=== PATIENT | male | born 1940 | race Caucasian/White ===

== ENCOUNTER → 2016-06-04 | Outpatient (CLI) | payer MEDICARE, OTHER ==
[2016-06-04 14:41] LABS: HEMATOCRIT 36.3 % (37.9-51.0); HGB HCT DIFFERENCE -0.3; MEAN CORPUSCULAR HEMOGLOBIN 28.7 pg (27.0-33.4); MEAN CORPUSCULAR VOLUME 87 fl (80-97); RED BLOOD COUNT 4.18 10^6/uL (4.35-5.55); RED CELL DISTRIBUTION WIDTH 16.7 % (11.5-14.0); WHITE BLOOD COUNT 7.2 10^3/uL (4.0-10.5)
[2016-06-04 14:46] LABS: PROTHROMBIN TIME 20.2 SEC (11.4-15.4)
[2016-06-04 14:59] LABS: ANION GAP 14 (5-19); BLOOD UREA NITROGEN 31 mg/dL (7-20); CALCIUM 9.6 mg/dL (8.4-10.2); CARBON DIOXIDE 31 mmol/L (22-30); CHLORIDE 98 mmol/L (98-107); CREATININE RESULT 1.57 mg/dL (0.52-1.25); GLUCOSE 99 mg/dL (75-110); POTASSIUM 4.3 mmol/L (3.6-5.0); SODIUM 142.6 mmol/L (137-145)
== END ==
LOC: OD 14:05
PROVIDERS: ATTEND Internal Medicine Advanced Heart Failure and Transplant Cardiology
DX: I50.9 Heart failure, unspecified (principal); E11.8 Type 2 diabetes mellitus with unspecified complications; Z95.811 Presence of heart assist device
CPT/HCPCS: 36415; 80048; 85027; 85610

== ENCOUNTER → 2016-06-11 | Outpatient (CLI) | payer MEDICARE, OTHER ==
[2016-06-11 12:52] LABS: PROTHROMBIN TIME 22.9 SEC (11.4-15.4)
[2016-06-11 13:01] LABS: ANION GAP 15 (5-19); BLOOD UREA NITROGEN 32 mg/dL (7-20); CALCIUM 9.7 mg/dL (8.4-10.2); CARBON DIOXIDE 29 mmol/L (22-30); CHLORIDE 98 mmol/L (98-107); CREATININE RESULT 1.68 mg/dL (0.52-1.25); GLUCOSE 118 mg/dL (75-110); POTASSIUM 4.5 mmol/L (3.6-5.0); SODIUM 142.4 mmol/L (137-145)
== END ==
LOC: OD 12:02
PROVIDERS: ATTEND Internal Medicine Advanced Heart Failure and Transplant Cardiology
DX: I50.9 Heart failure, unspecified (principal); E11.8 Type 2 diabetes mellitus with unspecified complications; Z95.811 Presence of heart assist device
CPT/HCPCS: 36415; 80048; 85610

== ENCOUNTER → 2016-06-25 | Outpatient (CLI) | payer MEDICARE, OTHER ==
[2016-06-25 12:43] LABS: PROTHROMBIN TIME 21.4 SEC (11.4-15.4)
[2016-06-25 12:52] LABS: ANION GAP 12 (5-19); BLOOD UREA NITROGEN 39 mg/dL (7-20); CALCIUM 9.5 mg/dL (8.4-10.2); CARBON DIOXIDE 32 mmol/L (22-30); CHLORIDE 97 mmol/L (98-107); CREATININE RESULT 1.88 mg/dL (0.52-1.25); GLUCOSE 132 mg/dL (75-110); POTASSIUM 4.7 mmol/L (3.6-5.0); SODIUM 140.5 mmol/L (137-145)
== END ==
LOC: OD 11:24
PROVIDERS: ATTEND Internal Medicine Advanced Heart Failure and Transplant Cardiology
DX: I50.9 Heart failure, unspecified (principal); Z95.811 Presence of heart assist device; E11.8 Type 2 diabetes mellitus with unspecified complications
CPT/HCPCS: 36415; 80048; 85610

== ENCOUNTER → 2016-07-07 | Outpatient (CLI) | payer MEDICARE, OTHER ==
[2016-07-07 11:03] LABS: PROTHROMBIN TIME 19.2 SEC (11.4-15.4)
== END ==
LOC: OD 10:09
PROVIDERS: ATTEND Internal Medicine Advanced Heart Failure and Transplant Cardiology
DX: I50.9 Heart failure, unspecified (principal); E11.8 Type 2 diabetes mellitus with unspecified complications; Z95.811 Presence of heart assist device
CPT/HCPCS: 36415; 85610

== ENCOUNTER → 2016-08-04 | Outpatient (CLI) | payer MEDICARE, OTHER ==
[2016-08-04 14:20] LABS: PROTHROMBIN TIME 18.8 SEC (11.4-15.4)
[2016-08-04 14:47] LABS: ANION GAP 17 (5-19); BLOOD UREA NITROGEN 36 mg/dL (7-20); CALCIUM 9.7 mg/dL (8.4-10.2); CARBON DIOXIDE 28 mmol/L (22-30); CHLORIDE 99 mmol/L (98-107); CREATININE RESULT 1.67 mg/dL (0.52-1.25); GLUCOSE 103 mg/dL (75-110); POTASSIUM 4.6 mmol/L (3.6-5.0)
== END ==
LOC: OD 13:28
PROVIDERS: ATTEND Internal Medicine Advanced Heart Failure and Transplant Cardiology
DX: I50.9 Heart failure, unspecified (principal); E11.8 Type 2 diabetes mellitus with unspecified complications; Z95.811 Presence of heart assist device
CPT/HCPCS: 36415; 80048; 85610

== ENCOUNTER → 2016-08-11 | Outpatient (CLI) | payer MEDICARE, OTHER ==
[2016-08-11 13:09] LABS: PROTHROMBIN TIME 14.7 SEC (11.4-15.4)
[2016-08-11 13:15] LABS: ANION GAP 16 (5-19); BLOOD UREA NITROGEN 39 mg/dL (7-20); CALCIUM 9.6 mg/dL (8.4-10.2); CARBON DIOXIDE 27 mmol/L (22-30); CHLORIDE 100 mmol/L (98-107); CREATININE RESULT 1.72 mg/dL (0.52-1.25); GLUCOSE 109 mg/dL (75-110); POTASSIUM 4.4 mmol/L (3.6-5.0); SODIUM 143.1 mmol/L (137-145)
== END ==
LOC: OD 12:32
PROVIDERS: ATTEND Internal Medicine Advanced Heart Failure and Transplant Cardiology
DX: I50.9 Heart failure, unspecified (principal); E11.8 Type 2 diabetes mellitus with unspecified complications; Z95.811 Presence of heart assist device
CPT/HCPCS: 36415; 80048; 85610

== ENCOUNTER → 2016-08-18 | Outpatient (CLI) | payer MEDICARE, OTHER ==
[2016-08-18 14:06] LABS: PROTHROMBIN TIME 26.1 SEC (11.4-15.4)
== END ==
LOC: OD 12:58
PROVIDERS: ATTEND Internal Medicine Advanced Heart Failure and Transplant Cardiology
DX: I50.9 Heart failure, unspecified (principal); Z95.811 Presence of heart assist device; E11.8 Type 2 diabetes mellitus with unspecified complications
CPT/HCPCS: 36415; 85610

== ENCOUNTER 2016-08-23 09:15 | Emergency (ER) | payer MEDICARE, OTHER ==
[2016-08-23] MEDS ORDERED: LIDOCAINE 1%/EPINEPHRINE INJ 20 ML VIAL INJ ONE (09:23)
--- NOTE | 2016-08-23 09:29 | ER Document Report ---
ED General - General Mode of Arrival: Medic Information source: Patient TRAVEL OUTSIDE OF THE [place] IN LAST 30 DAYS: No - HPI Patient complains to provider of: lip laceration Onset: Other - 00:00 last night Associated symptoms: Other - see notes above <RICHAR CRANDALL - Last Filed: 08/23/16 10:29> <MARÍA HOUSTON - Last Filed: 08/23/16 11:32> - General Chief Complaint: Laceration Stated Complaint: LIP LACERATION Notes: 76 year old male on LVAD (2015) and using Coumadin presents to the ED via EMS complaining of a lip laceration to the upper lip that started last night at 00:00 after he fell secondary to weakness. Patient reports the weakness occurs occasionally and is not new. EMS reports that the patient fell asleep on his recliner after he got the bleeding to stop and woke up covered in blood. (RICHAR CRANDALL) The patient states standing up feeling weak and falling if not a new problem that he has done this several times and there was nothing different about last night's episode. (MARÍA HOUSTON) - Related Data Allergies/Adverse Reactions: codeine Allergy (Verified 08/23/16 09:24) Sulfa (Sulfonamide Antibiotics) Allergy (Verified 08/23/16 09:24) Home Medications: Current Home Medications Warfarin Sodium [Coumadin] 7 mg PO DAILY 08/23/16 [History] Past Medical History - General Information source: Patient - Social History Smoking Status: Unknown if Ever Smoked Family History: Reviewed & Not Pertinent - Past Medical History Cardiac Medical History: Reports: Hx Congestive Heart Failure - LVAD in place <RICHAR CRANDALL - Last Filed: 08/23/16 10:29> Review of Systems - Review of Systems Constitutional: See HPI, Weakness EENT: No symptoms reported Cardiovascular: No symptoms reported Respiratory: No symptoms reported Gastrointestinal: No symptoms reported Genitourinary: No symptoms reported Male Genitourinary: No symptoms reported Musculoskeletal: No symptoms reported Skin: See HPI, Other - laceration to the upper lip Hematologic/Lymphatic: No symptoms reported Neurological/Psychological: No symptoms reported -: Yes All other systems reviewed and negative <RICHAR CRANDALL - Last Filed: 08/23/16 10:29> Physical Exam - General General appearance: Alert In distress: None - HEENT Head: Normocephalic, Atraumatic Eyes: Normal Extraocular movements intact: Yes Pupils: PERRL - Respiratory Respiratory status: No respiratory distress - Cardiovascular Rhythm: Regular - Abdominal Inspection: Normal - Back Back: Normal - Extremities General upper extremity: Normal inspection, Normal ROM General lower extremity: Normal inspection, Normal ROM - Neurological Neuro grossly intact: Yes - Psychological Associated symptoms: Normal affect, Normal mood - Skin Skin Temperature: Warm Skin Moisture: Dry Skin Color: Normal <RICHAR CRANDALL - Last Filed: 08/23/16 10:29> - HEENT Head: Open wounds - There is a vertical laceration through the medial left upper lip about 1 cm in length. 4 mm extends above the vermilion border 6 mm below the vermilion border. The lip is swollen and bruised, there are minor mucosal lacerations on the underneath side that do not need treatment. It is actively bleeding. Bleeding can be controlled with compression. Mouth/Lips: Other - There is a rather large chip out of the lateral corner of the upper central incisor which the patient states is an old problem. Patient denies any other loose teeth other than his partial plate in the lower anterior area. <MARÍA HOUSTON - Last Filed: 08/23/16 11:32> - Vital signs Vitals: Pulse Resp BP Pulse Ox 82 18 99/53 L 90 L 08/23/16 09:28 08/23/16 09:28 08/23/16 09:28 08/23/16 09:28 Course - Laboratory Result Diagrams: 08/23/16 09:30 08/23/16 09:30 <RICHAR CRANDALL - Last Filed: 08/23/16 10:29> - Laboratory Result Diagrams: 08/23/16 09:30 08/23/16 09:30 - Diagnostic Test Radiology reviewed: Image reviewed, Reports reviewed - Head CT does not show any intracranial bleeding or injury. <MARÍA HOUSTON - Last Filed: 08/23/16 11:32> - Re-evaluation Re-evalutation: 08/23/16 11:00 The patient's INR was 3.05, he states this usually closer to one but they increase his Coumadin recently. He reports last week it was in the 2 point something range but he doesn't remember what. It sounds like they want him about 2.5 by what he recalls. (MARÍA HOUSTON) - Vital Signs Vital signs: Temp Pulse Resp BP Pulse Ox 82 18 99/53 L 90 L 08/23/16 09:28 08/23/16 09:28 08/23/16 09:28 08/23/16 09:28 - Laboratory Laboratory results interpreted by me: 08/23/16 08/23/16 08/23/16 09:30 09:30 09:30 WBC 11.2 H RBC 3.58 L Hgb 10.8 L Hct 31.6 L RDW 14.2 H Plt Count 134 L Lymphocytes % 11.9 L Absolute Neutrophils 8.6 H PT 33.0 H BUN 52 H Creatinine 1.86 H Est GFR ( Amer) 43 L Est GFR (Non-Af Amer) 36 L Glucose 116 H Procedures <RICHAR CRANDALL - Last Filed: 08/23/16 10:29> - Laceration/Wound Repair Left Face Time completed: 10:10 Wound length (cm): 1 Wound's Depth, Shape: Into muscle, Linear, Contused tissue Laceration pre-procedure: Sterile drapes applied, Shur-Clens applied Anesthetic type: 1% Lidocaine w/epi Volume Anesthetic (mLs): 1 Wound explored: Clean Irrigated w/ Saline (mLs): 10 Wound Debrided: Minimal Wound Repaired With: Sutures Suture Size/Type: 5:0, Vicryl Number of Sutures: 4 Layer Closure?: No Post-procedure NV exam normal: Yes Complications: No <MARÍA HOUSTON - Last Filed: 08/23/16 11:32> - Laceration/Wound Repair Left Face Notes: 08/23/16 10:16 Bleeding stopped after the sutures were placed. This is probably due to a combination of the lidocaine with epinephrine, and approximating the wound edges. (MARÍA HOUSTON) Discharge <RICHAR CRANDALL - Last Filed: 08/23/16 10:29> <MARÍA HOUSTON - Last Filed: 08/23/16 11:32> - Discharge Clinical Impression: Syncope and collapse, Excessive anticoagulation Lip laceration Qualifiers: Encounter type: initial encounter Qualified Code(s): S01.511A - Laceration without foreign body of lip, initial encounter Condition: Stable Disposition: HOME, SELF-CARE Additional Instructions: Use ice packs on the lip today to reduce swelling. Do not take your Coumadin dose today. Call your doctor to report the INR of 3.05 Return next Thursday to have the sutures removed. RETURN TO THE EMERGENCY ROOM IF ANY NEW OR WORSENING SYMPTOMS. Scribe Attestation: 08/23/16 11:32 I personally performed the services described in the documentation, reviewed and edited the documentation which was dictated to the scribe in my presence, and it accurately records my words and actions. (MARÍA HOUSTON) Scribe Documentation - Scribe Written by Trudi:: Trudi Funk, 08/23/2016 0930 acting as scribe for :: Jerel <RICHAR CRANDALL - Last Filed: 08/23/16 10:29>
[2016-08-23 09:47] LABS: ABSOLUTE BASOPHILS # (AUTO) 0.1 10^3/uL (0.0-0.2); ABSOLUTE EOSINOPHILS # (AUTO) 0.2 10^3/uL (0.0-0.6); ABSOLUTE LYMPHOCYTES (AUTO) 1.3 10^3/uL (0.5-4.7); ABSOLUTE NEUT (AUTO) 8.6 10^3/uL (1.7-8.2); BASOPHILS % (AUTO) 0.7 % (0-2); EOSINOPHILS % (AUTO) 1.4 % (0-6); HEMATOCRIT 31.6 % (37.9-51.0); HEMOGLOBIN 10.8 g/dL (13.5-17.0); HGB HCT DIFFERENCE 0.8; LYMPHOCYTES % (AUTO) 11.9 % (13-45); MEAN CORPUSCULAR HEMOGLOBIN 30.1 pg (27.0-33.4); MEAN CORPUSCULAR HGB CONC 34.1 g/dL (32.0-36.0); MEAN CORPUSCULAR VOLUME 88 fl (80-97); MONOCYTES % (AUTO) 9.3 % (3-13); RED BLOOD COUNT 3.58 10^6/uL (4.35-5.55); RED CELL DISTRIBUTION WIDTH 14.2 % (11.5-14.0); SEGMENTED NEUTROPHILS % (AUTO) 76.7 % (42-78); WHITE BLOOD COUNT 11.2 10^3/uL (4.0-10.5)
[2016-08-23 10:07] LABS: ALANINE AMINOTRANSFERASE 26 U/L (21-72); ALBUMIN 3.7 g/dL (3.5-5.0); ALKALINE PHOSPHATASE 73 U/L (38-126); ANION GAP 11 (5-19); ASPARTATE AMINO TRANSFERASE 22 U/L (17-59); BILIRUBIN,DIRECT 0.4 mg/dL (0.0-0.4); BILIRUBIN,TOTAL 0.8 mg/dL (0.2-1.3); BLOOD UREA NITROGEN 52 mg/dL (7-20); CALCIUM 8.8 mg/dL (8.4-10.2); CARBON DIOXIDE 28 mmol/L (22-30); CHLORIDE 101 mmol/L (98-107); CREATININE RESULT 1.86 mg/dL (0.52-1.25); GLUCOSE 116 mg/dL (75-110); POTASSIUM 4.3 mmol/L (3.6-5.0); SODIUM 140.1 mmol/L (137-145); TOTAL PROTEIN 6.7 g/dL (6.3-8.2)
[2016-08-23 11:44] VITALS: BP 98/50
== END 2016-08-23 11:43 | disposition home or self-care (01) ==
LOC: ER 09:15
PROC: 0HQ1XZZ Repair Face Skin, External Approach (ICD-10-PCS; principal; 2016-08-23)
DX: S01.511A Laceration without foreign body of lip, initial encounter (principal); R55 Syncope and collapse; R53.1 Weakness; Z79.01 Long term (current) use of anticoagulants; W19.XXXA Unspecified fall, initial encounter
CPT/HCPCS: 99284; 36415; 85025; 85610; 80053; 70450; 12011; J3490

== ENCOUNTER → 2016-10-01 | Outpatient (CLI) | payer MEDICARE, OTHER ==
[2016-10-01 13:46] LABS: ANION GAP 11 (5-19); BLOOD UREA NITROGEN 29 mg/dL (7-20); CALCIUM 9.3 mg/dL (8.4-10.2); CARBON DIOXIDE 30 mmol/L (22-30); CHLORIDE 101 mmol/L (98-107); CREATININE RESULT 1.45 mg/dL (0.52-1.25); GLUCOSE 97 mg/dL (75-110); SODIUM 142.4 mmol/L (137-145)
== END ==
LOC: OD 12:46
PROVIDERS: ATTEND Internal Medicine Advanced Heart Failure and Transplant Cardiology
DX: I50.9 Heart failure, unspecified (principal); E11.8 Type 2 diabetes mellitus with unspecified complications; Z95.811 Presence of heart assist device
CPT/HCPCS: 36415; 80048; 85610

== ENCOUNTER → 2016-10-16 | Outpatient (CLI) | payer MEDICARE, OTHER ==
[2016-10-16 13:01] LABS: HEMATOCRIT 32.8 % (37.9-51.0); HEMOGLOBIN 10.5 g/dL (13.5-17.0); HGB HCT DIFFERENCE -1.3; MEAN CORPUSCULAR HEMOGLOBIN 27.2 pg (27.0-33.4); MEAN CORPUSCULAR HGB CONC 32.1 g/dL (32.0-36.0); MEAN CORPUSCULAR VOLUME 85 fl (80-97); RED BLOOD COUNT 3.88 10^6/uL (4.35-5.55); RED CELL DISTRIBUTION WIDTH 14.3 % (11.5-14.0); WHITE BLOOD COUNT 5.2 10^3/uL (4.0-10.5)
[2016-10-16 13:08] LABS: PROTHROMBIN TIME 28.5 SEC (11.4-15.4)
[2016-10-16 13:17] LABS: ANION GAP 14 (5-19); BLOOD UREA NITROGEN 27 mg/dL (7-20); CALCIUM 9.2 mg/dL (8.4-10.2); CARBON DIOXIDE 29 mmol/L (22-30); CHLORIDE 100 mmol/L (98-107); CREATININE RESULT 1.57 mg/dL (0.52-1.25); GLUCOSE 108 mg/dL (75-110); POTASSIUM 3.7 mmol/L (3.6-5.0); SODIUM 143.3 mmol/L (137-145)
== END ==
LOC: OD 11:59
PROVIDERS: ATTEND Internal Medicine Advanced Heart Failure and Transplant Cardiology
DX: I50.9 Heart failure, unspecified (principal); Z95.811 Presence of heart assist device; E11.8 Type 2 diabetes mellitus with unspecified complications
CPT/HCPCS: 36415; 80048; 85027; 85610

== ENCOUNTER → 2016-11-05 | Outpatient (CLI) | payer MEDICARE, OTHER ==
[2016-11-05 10:04] LABS: PROTHROMBIN TIME 29.8 SEC (11.4-15.4)
[2016-11-05 10:15] LABS: ANION GAP 12 (5-19); BLOOD UREA NITROGEN 27 mg/dL (7-20); CALCIUM 9.1 mg/dL (8.4-10.2); CARBON DIOXIDE 30 mmol/L (22-30); CHLORIDE 101 mmol/L (98-107); CREATININE RESULT 1.51 mg/dL (0.52-1.25); GLUCOSE 126 mg/dL (75-110); POTASSIUM 3.8 mmol/L (3.6-5.0); SODIUM 142.8 mmol/L (137-145)
== END ==
LOC: OD 09:14
PROVIDERS: ATTEND Internal Medicine Advanced Heart Failure and Transplant Cardiology
DX: I50.9 Heart failure, unspecified (principal); E11.8 Type 2 diabetes mellitus with unspecified complications; Z95.811 Presence of heart assist device
CPT/HCPCS: 36415; 80048; 85610

== ENCOUNTER → 2016-11-18 | Outpatient (CLI) | payer MEDICARE, OTHER ==
[2016-11-18 14:31] LABS: PROTHROMBIN TIME 31.4 SEC (11.4-15.4)
[2016-11-18 14:54] LABS: ANION GAP 12 (5-19); BLOOD UREA NITROGEN 29 mg/dL (7-20); CARBON DIOXIDE 33 mmol/L (22-30); CHLORIDE 98 mmol/L (98-107); CREATININE RESULT 1.35 mg/dL (0.52-1.25); GLUCOSE 88 mg/dL (75-110); POTASSIUM 3.3 mmol/L (3.6-5.0); SODIUM 143.3 mmol/L (137-145)
== END ==
LOC: OD 13:34
PROVIDERS: ATTEND Internal Medicine Advanced Heart Failure and Transplant Cardiology
DX: I50.9 Heart failure, unspecified (principal); Z95.811 Presence of heart assist device; E11.8 Type 2 diabetes mellitus with unspecified complications
CPT/HCPCS: 36415; 80048; 85610

== ENCOUNTER → 2016-12-02 | Outpatient (CLI) | payer MEDICARE, OTHER ==
[2016-12-02 14:09] LABS: PROTHROMBIN TIME 27.3 SEC (11.4-15.4)
[2016-12-02 14:22] LABS: ANION GAP 12 (5-19); BLOOD UREA NITROGEN 30 mg/dL (7-20); CALCIUM 9.2 mg/dL (8.4-10.2); CARBON DIOXIDE 35 mmol/L (22-30); CHLORIDE 97 mmol/L (98-107); GLUCOSE 93 mg/dL (75-110); POTASSIUM 3.5 mmol/L (3.6-5.0); SODIUM 143.6 mmol/L (137-145)
== END ==
LOC: OD 13:33
PROVIDERS: ATTEND Internal Medicine Advanced Heart Failure and Transplant Cardiology
DX: I50.9 Heart failure, unspecified (principal); E11.8 Type 2 diabetes mellitus with unspecified complications; Z95.811 Presence of heart assist device
CPT/HCPCS: 36415; 80048; 85610

== ENCOUNTER → 2017-01-06 | Outpatient (CLI) | payer MEDICARE, OTHER ==
[2017-01-06 12:20] LABS: PROTHROMBIN TIME 22.4 SEC (11.4-15.4)
[2017-01-06 12:40] LABS: ANION GAP 14 (5-19); BLOOD UREA NITROGEN 35 mg/dL (7-20); CALCIUM 9.6 mg/dL (8.4-10.2); CARBON DIOXIDE 28 mmol/L (22-30); CHLORIDE 100 mmol/L (98-107); CREATININE RESULT 1.54 mg/dL (0.52-1.25); GLUCOSE 117 mg/dL (75-110); POTASSIUM 4.3 mmol/L (3.6-5.0); SODIUM 141.8 mmol/L (137-145)
== END ==
LOC: OD 11:43
PROVIDERS: ATTEND Internal Medicine Advanced Heart Failure and Transplant Cardiology
DX: I50.9 Heart failure, unspecified (principal); E11.8 Type 2 diabetes mellitus with unspecified complications; Z95.811 Presence of heart assist device
CPT/HCPCS: 36415; 80048; 85610

== ENCOUNTER → 2017-02-09 | Outpatient (CLI) | payer MEDICARE, OTHER ==
[2017-02-09 12:45] LABS: PROTHROMBIN TIME 26.5 SEC (11.4-15.4)
== END ==
LOC: OD 11:44
PROVIDERS: ATTEND Internal Medicine Advanced Heart Failure and Transplant Cardiology
DX: I50.9 Heart failure, unspecified (principal); Z95.811 Presence of heart assist device; E11.8 Type 2 diabetes mellitus with unspecified complications
CPT/HCPCS: 36415; 85610

== ENCOUNTER → 2017-02-19 | Outpatient (CLI) | payer MEDICARE, OTHER ==
[2017-02-19 13:53] LABS: PROTHROMBIN TIME 22.9 SEC (11.4-15.4)
== END ==
LOC: OD 13:19
PROVIDERS: ATTEND Internal Medicine Advanced Heart Failure and Transplant Cardiology
DX: I50.9 Heart failure, unspecified (principal); Z95.811 Presence of heart assist device; E11.9 Type 2 diabetes mellitus without complications
CPT/HCPCS: 36415; 85610

== ENCOUNTER → 2017-03-25 | Outpatient (CLI) | payer MEDICARE, OTHER ==
[2017-03-25 12:16] LABS: PROTHROMBIN TIME 27.5 SEC (11.4-15.4)
[2017-03-25 12:41] LABS: ANION GAP 12 (5-19); BLOOD UREA NITROGEN 36 mg/dL (7-20); CALCIUM 9.2 mg/dL (8.4-10.2); CARBON DIOXIDE 33 mmol/L (22-30); CHLORIDE 102 mmol/L (98-107); CREATININE RESULT 1.65 mg/dL (0.52-1.25); GLUCOSE 86 mg/dL (75-110); POTASSIUM 3.8 mmol/L (3.6-5.0); SODIUM 147.3 mmol/L (137-145)
== END ==
LOC: OD 11:44
PROVIDERS: ATTEND Internal Medicine Advanced Heart Failure and Transplant Cardiology
DX: I50.9 Heart failure, unspecified (principal); Z95.811 Presence of heart assist device; E11.8 Type 2 diabetes mellitus with unspecified complications
CPT/HCPCS: 36415; 80048; 85610

== ENCOUNTER → 2017-04-08 | Outpatient (CLI) | payer MEDICARE, OTHER ==
[2017-04-08 11:58] LABS: ANION GAP 12 (5-19); BLOOD UREA NITROGEN 29 mg/dL (7-20); CALCIUM 9.6 mg/dL (8.4-10.2); CARBON DIOXIDE 35 mmol/L (22-30); CHLORIDE 100 mmol/L (98-107); GLUCOSE 91 mg/dL (75-110); POTASSIUM 3.9 mmol/L (3.6-5.0); SODIUM 146.7 mmol/L (137-145)
== END ==
LOC: OD 10:59
PROVIDERS: ATTEND Internal Medicine Advanced Heart Failure and Transplant Cardiology
DX: I50.9 Heart failure, unspecified (principal); E11.8 Type 2 diabetes mellitus with unspecified complications
CPT/HCPCS: 36415; 80048; 85610

== ENCOUNTER → 2017-05-19 | Outpatient (CLI) | payer MEDICARE, OTHER ==
[2017-05-19 13:40] LABS: INTERNATIONAL RATION (INR) 2.53; PROTHROMBIN TIME 28.5 SEC (11.4-15.4)
[2017-05-19 13:55] LABS: ANION GAP 15 (5-19); BLOOD UREA NITROGEN 32 mg/dL (7-20); CALCIUM 9.8 mg/dL (8.4-10.2); CARBON DIOXIDE 31 mmol/L (22-30); CHLORIDE 98 mmol/L (98-107); GLUCOSE 90 mg/dL (75-110); POTASSIUM 3.5 mmol/L (3.6-5.0); SODIUM 143.7 mmol/L (137-145)
== END ==
LOC: OD 12:57
PROVIDERS: ATTEND Internal Medicine Advanced Heart Failure and Transplant Cardiology
DX: I50.9 Heart failure, unspecified (principal); E11.8 Type 2 diabetes mellitus with unspecified complications; Z95.811 Presence of heart assist device
CPT/HCPCS: 36415; 80048; 85610

== ENCOUNTER → 2017-06-09 | Outpatient (CLI) | payer MEDICARE, OTHER ==
[2017-06-09 14:14] LABS: INTERNATIONAL RATION (INR) 2.35
[2017-06-09 14:26] LABS: ANION GAP 10 (5-19); BLOOD UREA NITROGEN 32 mg/dL (7-20); CALCIUM 9.9 mg/dL (8.4-10.2); CARBON DIOXIDE 34 mmol/L (22-30); CHLORIDE 98 mmol/L (98-107); GLUCOSE 98 mg/dL (75-110); POTASSIUM 3.9 mmol/L (3.6-5.0); SODIUM 142.1 mmol/L (137-145)
== END ==
LOC: OD 12:49
PROVIDERS: ATTEND Internal Medicine Advanced Heart Failure and Transplant Cardiology
DX: I50.9 Heart failure, unspecified (principal); Z95.811 Presence of heart assist device; E11.8 Type 2 diabetes mellitus with unspecified complications
CPT/HCPCS: 36415; 80048; 85610

== ENCOUNTER → 2017-06-23 | Outpatient (CLI) | payer MEDICARE, OTHER ==
[2017-06-23 14:10] LABS: INTERNATIONAL RATION (INR) 2.77; PROTHROMBIN TIME 30.6 SEC (11.4-15.4)
[2017-06-23 14:16] LABS: BLOOD UREA NITROGEN 37 mg/dL (7-20); CALCIUM 10.1 mg/dL (8.4-10.2); CHLORIDE 92 mmol/L (98-107); GLUCOSE 95 mg/dL (75-110); POTASSIUM 3.1 mmol/L (3.6-5.0)
[2017-06-23 14:33] LABS: ANION GAP 10 (5-19); CARBON DIOXIDE 43 mmol/L (22-30)
== END ==
LOC: OD 12:50
PROVIDERS: ATTEND Internal Medicine Advanced Heart Failure and Transplant Cardiology
DX: I50.9 Heart failure, unspecified (principal); E11.8 Type 2 diabetes mellitus with unspecified complications; Z95.811 Presence of heart assist device
CPT/HCPCS: 36415; 80048; 85610

== ENCOUNTER → 2017-06-26 | Outpatient (CLI) | payer MEDICARE, OTHER ==
[2017-06-26 12:54] LABS: ANION GAP 13 (5-19); BLOOD UREA NITROGEN 32 mg/dL (7-20); CALCIUM 9.6 mg/dL (8.4-10.2); CARBON DIOXIDE 36 mmol/L (22-30); CHLORIDE 95 mmol/L (98-107); GLUCOSE 102 mg/dL (75-110); POTASSIUM 3.1 mmol/L (3.6-5.0); SODIUM 143.7 mmol/L (137-145)
== END ==
LOC: OD 12:01
PROVIDERS: ATTEND Internal Medicine Advanced Heart Failure and Transplant Cardiology
DX: I50.9 Heart failure, unspecified (principal); E11.8 Type 2 diabetes mellitus with unspecified complications; Z95.811 Presence of heart assist device
CPT/HCPCS: 36415; 80048

== ENCOUNTER → 2017-08-26 | Outpatient (CLI) | payer MEDICARE, OTHER ==
[2017-08-26 14:20] LABS: ANION GAP 11 (5-19); BLOOD UREA NITROGEN 34 mg/dL (7-20); CALCIUM 9.5 mg/dL (8.4-10.2); CARBON DIOXIDE 37 mmol/L (22-30); CHLORIDE 98 mmol/L (98-107); GLUCOSE 86 mg/dL (75-110); POTASSIUM 3.3 mmol/L (3.6-5.0); SODIUM 145.5 mmol/L (137-145)
[2017-08-26 19:45] LABS: INTERNATIONAL RATION (INR) 5.43; PROTHROMBIN TIME 51.9 SEC (11.4-15.4)
== END ==
LOC: OD 13:20
PROVIDERS: ATTEND Internal Medicine Advanced Heart Failure and Transplant Cardiology
DX: I50.9 Heart failure, unspecified (principal); E11.8 Type 2 diabetes mellitus with unspecified complications; Z95.811 Presence of heart assist device
CPT/HCPCS: 36415; 80048; 85610

== ENCOUNTER → 2017-09-23 | Outpatient (CLI) | payer MEDICARE, OTHER ==
[2017-09-23 13:18] LABS: INTERNATIONAL RATION (INR) 3.27; PROTHROMBIN TIME 34.8 SEC (11.4-15.4)
[2017-09-23 13:36] LABS: ANION GAP 15 (5-19); BLOOD UREA NITROGEN 26 mg/dL (7-20); CALCIUM 9.3 mg/dL (8.4-10.2); CARBON DIOXIDE 36 mmol/L (22-30); CHLORIDE 97 mmol/L (98-107); GLUCOSE 132 mg/dL (75-110); SODIUM 148.1 mmol/L (137-145)
== END ==
LOC: OD 12:31
PROVIDERS: ATTEND Internal Medicine Advanced Heart Failure and Transplant Cardiology
DX: I50.9 Heart failure, unspecified (principal); E11.8 Type 2 diabetes mellitus with unspecified complications; Z95.811 Presence of heart assist device
CPT/HCPCS: 36415; 80048; 85610

== ENCOUNTER → 2017-09-30 | Outpatient (CLI) | payer MEDICARE, OTHER ==
[2017-09-30 13:30] LABS: INTERNATIONAL RATION (INR) 3.24; PROTHROMBIN TIME 34.6 SEC (11.4-15.4)
[2017-09-30 13:35] LABS: ANION GAP 15 (5-19); BLOOD UREA NITROGEN 23 mg/dL (7-20); CALCIUM 9.7 mg/dL (8.4-10.2); CARBON DIOXIDE 31 mmol/L (22-30); CHLORIDE 101 mmol/L (98-107); GLUCOSE 108 mg/dL (75-110); POTASSIUM 3.3 mmol/L (3.6-5.0); SODIUM 147.1 mmol/L (137-145)
== END ==
LOC: OD 12:26
PROVIDERS: ATTEND Internal Medicine Advanced Heart Failure and Transplant Cardiology
DX: I50.9 Heart failure, unspecified (principal); Z95.811 Presence of heart assist device; E11.8 Type 2 diabetes mellitus with unspecified complications
CPT/HCPCS: 36415; 80048; 85610

== ENCOUNTER → 2017-10-07 | Outpatient (CLI) | payer MEDICARE, OTHER ==
[2017-10-07 12:49] LABS: INTERNATIONAL RATION (INR) 3.16; PROTHROMBIN TIME 33.9 SEC (11.4-15.4)
== END ==
LOC: OD 11:55
PROVIDERS: ATTEND Internal Medicine Advanced Heart Failure and Transplant Cardiology
DX: I50.9 Heart failure, unspecified (principal); E11.8 Type 2 diabetes mellitus with unspecified complications; Z95.811 Presence of heart assist device
CPT/HCPCS: 36415; 85610

== ENCOUNTER → 2017-10-21 | Outpatient (CLI) | payer MEDICARE, OTHER ==
[2017-10-21 13:28] LABS: INTERNATIONAL RATION (INR) 3.09; PROTHROMBIN TIME 33.3 SEC (11.4-15.4)
[2017-10-21 13:51] LABS: ANION GAP 12 (5-19); BLOOD UREA NITROGEN 27 mg/dL (7-20); CALCIUM 9.9 mg/dL (8.4-10.2); CARBON DIOXIDE 36 mmol/L (22-30); CHLORIDE 98 mmol/L (98-107); GLUCOSE 109 mg/dL (75-110); POTASSIUM 4.2 mmol/L (3.6-5.0); SODIUM 145.6 mmol/L (137-145)
== END ==
LOC: OD 12:36
PROVIDERS: ATTEND Internal Medicine Advanced Heart Failure and Transplant Cardiology
DX: I50.9 Heart failure, unspecified (principal); E11.8 Type 2 diabetes mellitus with unspecified complications; Z95.811 Presence of heart assist device
CPT/HCPCS: 36415; 80048; 85610

== ENCOUNTER → 2017-11-04 | Outpatient (CLI) | payer MEDICARE, OTHER ==
[2017-11-04 13:45] LABS: INTERNATIONAL RATION (INR) 1.35; PROTHROMBIN TIME 17.4 SEC (11.4-15.4)
[2017-11-04 14:00] LABS: ANION GAP 11 (5-19); BLOOD UREA NITROGEN 28 mg/dL (7-20); CALCIUM 9.5 mg/dL (8.4-10.2); CARBON DIOXIDE 36 mmol/L (22-30); CHLORIDE 100 mmol/L (98-107); GLUCOSE 97 mg/dL (75-110); POTASSIUM 4.4 mmol/L (3.6-5.0); SODIUM 146.5 mmol/L (137-145)
== END ==
LOC: OD 12:56
PROVIDERS: ATTEND Internal Medicine Advanced Heart Failure and Transplant Cardiology
DX: I50.9 Heart failure, unspecified (principal); E11.8 Type 2 diabetes mellitus with unspecified complications; Z95.811 Presence of heart assist device
CPT/HCPCS: 36415; 80048; 85610

== ENCOUNTER → 2017-11-12 | Outpatient (CLI) | payer MEDICARE, OTHER ==
[2017-11-12 13:01] LABS: INTERNATIONAL RATION (INR) 1.78; PROTHROMBIN TIME 21.6 SEC (11.4-15.4)
[2017-11-12 13:14] LABS: ANION GAP 12 (5-19); BLOOD UREA NITROGEN 32 mg/dL (7-20); CALCIUM 9.4 mg/dL (8.4-10.2); CARBON DIOXIDE 34 mmol/L (22-30); CHLORIDE 99 mmol/L (98-107); GLUCOSE 72 mg/dL (75-110); SODIUM 145.4 mmol/L (137-145)
== END ==
LOC: OD 12:23
PROVIDERS: ATTEND Internal Medicine Advanced Heart Failure and Transplant Cardiology
DX: I50.9 Heart failure, unspecified (principal); E11.8 Type 2 diabetes mellitus with unspecified complications; Z95.811 Presence of heart assist device
CPT/HCPCS: 36415; 80048; 85610

== ENCOUNTER → 2017-11-19 | Outpatient (CLI) | payer MEDICARE, OTHER ==
[2017-11-19 13:18] LABS: INTERNATIONAL RATION (INR) 1.49; PROTHROMBIN TIME 18.8 SEC (11.4-15.4)
== END ==
LOC: OD 12:34
PROVIDERS: ATTEND Internal Medicine Advanced Heart Failure and Transplant Cardiology
DX: I50.9 Heart failure, unspecified (principal); E11.8 Type 2 diabetes mellitus with unspecified complications; Z95.811 Presence of heart assist device
CPT/HCPCS: 36415; 85610

== ENCOUNTER → 2017-11-27 | Outpatient (CLI) | payer MEDICARE, OTHER ==
[2017-11-27 11:05] LABS: INTERNATIONAL RATION (INR) 1.81; PROTHROMBIN TIME 21.9 SEC (11.4-15.4)
[2017-11-27 11:17] LABS: ANION GAP 13 (5-19); BLOOD UREA NITROGEN 40 mg/dL (7-20); CALCIUM 9.4 mg/dL (8.4-10.2); CARBON DIOXIDE 30 mmol/L (22-30); CHLORIDE 100 mmol/L (98-107); GLUCOSE 111 mg/dL (75-110); POTASSIUM 4.6 mmol/L (3.6-5.0); SODIUM 142.8 mmol/L (137-145)
== END ==
LOC: OD 10:10
PROVIDERS: ATTEND Internal Medicine Advanced Heart Failure and Transplant Cardiology
DX: I50.9 Heart failure, unspecified (principal); Z95.811 Presence of heart assist device; E11.8 Type 2 diabetes mellitus with unspecified complications
CPT/HCPCS: 36415; 80048; 85610

== ENCOUNTER → 2017-12-07 | Outpatient (CLI) | payer MEDICARE, OTHER ==
[2017-12-07 12:55] LABS: INTERNATIONAL RATION (INR) 1.63; PROTHROMBIN TIME 20.1 SEC (11.4-15.4)
[2017-12-07 13:05] LABS: ANION GAP 14 (5-19); BLOOD UREA NITROGEN 35 mg/dL (7-20); CALCIUM 9.3 mg/dL (8.4-10.2); CARBON DIOXIDE 28 mmol/L (22-30); CHLORIDE 102 mmol/L (98-107); DIGOXIN 0.82 ng/mL (0.8-2.0); GLUCOSE 114 mg/dL (75-110); POTASSIUM 4.5 mmol/L (3.6-5.0); SODIUM 143.7 mmol/L (137-145)
== END ==
LOC: OD 12:03
PROVIDERS: ATTEND Internal Medicine Advanced Heart Failure and Transplant Cardiology
DX: I50.9 Heart failure, unspecified (principal); E11.8 Type 2 diabetes mellitus with unspecified complications; Z95.811 Presence of heart assist device
CPT/HCPCS: 36415; 80048; 80162; 85610

== ENCOUNTER → 2017-12-15 | Outpatient (CLI) | payer MEDICARE, OTHER ==
[2017-12-15 14:03] LABS: INTERNATIONAL RATION (INR) 2.95; PROTHROMBIN TIME 32.1 SEC (11.4-15.4)
[2017-12-15 14:20] LABS: ANION GAP 13 (5-19); BLOOD UREA NITROGEN 31 mg/dL (7-20); CALCIUM 9.3 mg/dL (8.4-10.2); CARBON DIOXIDE 34 mmol/L (22-30); CHLORIDE 97 mmol/L (98-107); GLUCOSE 99 mg/dL (75-110); SODIUM 144.2 mmol/L (137-145)
== END ==
LOC: OD 13:25
PROVIDERS: ATTEND Internal Medicine Advanced Heart Failure and Transplant Cardiology
DX: I50.9 Heart failure, unspecified (principal); E11.8 Type 2 diabetes mellitus with unspecified complications; Z95.811 Presence of heart assist device
CPT/HCPCS: 36415; 80048; 85610

== ENCOUNTER → 2018-01-29 | Outpatient (CLI) | payer MEDICARE, OTHER ==
[2018-01-29 13:44] LABS: ANION GAP 8 (5-19); BLOOD UREA NITROGEN 28 mg/dL (7-20); CALCIUM 9.4 mg/dL (8.4-10.2); CARBON DIOXIDE 34 mmol/L (22-30); CHLORIDE 99 mmol/L (98-107); GLUCOSE 111 mg/dL (75-110); POTASSIUM 4.3 mmol/L (3.6-5.0); SODIUM 140.6 mmol/L (137-145)
[2018-01-29 13:46] LABS: INTERNATIONAL RATION (INR) 2.98; PROTHROMBIN TIME 32.3 SEC (11.4-15.4)
== END ==
LOC: OD 12:50
PROVIDERS: ATTEND Internal Medicine Advanced Heart Failure and Transplant Cardiology
DX: I50.9 Heart failure, unspecified (principal); Z95.811 Presence of heart assist device; E11.8 Type 2 diabetes mellitus with unspecified complications
CPT/HCPCS: 36415; 80048; 85610

== ENCOUNTER → 2018-02-11 | Outpatient (CLI) | payer MEDICARE, OTHER ==
[2018-02-11 13:38] LABS: PROTHROMBIN TIME 30.8 SEC (11.4-15.4)
[2018-02-11 13:45] LABS: ANION GAP 12 (5-19); BLOOD UREA NITROGEN 37 mg/dL (7-20); CALCIUM 9.9 mg/dL (8.4-10.2); CARBON DIOXIDE 30 mmol/L (22-30); CHLORIDE 99 mmol/L (98-107); GLUCOSE 83 mg/dL (75-110); POTASSIUM 4.1 mmol/L (3.6-5.0); SODIUM 141.1 mmol/L (137-145)
== END ==
LOC: OD 12:54
PROVIDERS: ATTEND Internal Medicine Advanced Heart Failure and Transplant Cardiology
DX: I50.9 Heart failure, unspecified (principal); E11.8 Type 2 diabetes mellitus with unspecified complications; Z95.811 Presence of heart assist device
CPT/HCPCS: 36415; 80048; 85610

== ENCOUNTER → 2018-03-04 | Outpatient (CLI) | payer MEDICARE, OTHER ==
[2018-03-04 12:58] LABS: INTERNATIONAL RATION (INR) 3.17
[2018-03-04 13:20] LABS: ANION GAP 15 (5-19); BLOOD UREA NITROGEN 32 mg/dL (7-20); CALCIUM 9.7 mg/dL (8.4-10.2); CARBON DIOXIDE 32 mmol/L (22-30); CHLORIDE 99 mmol/L (98-107); GLUCOSE 122 mg/dL (75-110); POTASSIUM 4.7 mmol/L (3.6-5.0)
== END ==
LOC: OD 12:25
PROVIDERS: ATTEND Internal Medicine Advanced Heart Failure and Transplant Cardiology
DX: I50.9 Heart failure, unspecified (principal); E11.8 Type 2 diabetes mellitus with unspecified complications; Z95.811 Presence of heart assist device
CPT/HCPCS: 36415; 80048; 85610

== ENCOUNTER 2018-03-12 10:35 | Emergency (ER) | payer MEDICARE, OTHER ==
--- NOTE | 2018-03-12 10:44 | ER Document Report ---
ED Neuro Symptoms/Deficit - General Mode of Arrival: Medic Information source: Patient, Relative Notes: 77-year-old male with LVAD on coumadin that presents today with complaints of stroke-like symptoms associated with multiple syncopal episodes over the past week. at bedside states the patient initially had a syncopal event 4 days ago and then 2 days ago he had "at least 5" syncopal events but was never seen for these. states that for most of these events she was not present so she is unsure if he hit his head. Patient does point to his left forehead where there is a minor abrasion stating he did hit his head there. Patient is aphasic. Patient has a skin tear to the left arm as well. states yesterday the patient had slightly slurred speech and perhaps a little more confusion then baseline but he was still able to converse appropriately, stating that he called family and "asked for chicken" last night. states today the patient was much more confused and "worked himself up" when attempting to get out of a chair. TRAVEL OUTSIDE OF THE [place] IN LAST 30 DAYS: No <TIM TALAVERA - Last Filed: 03/12/18 12:15> <MARÍA HOUSTON - Last Filed: 03/12/18 15:43> - General Stated Complaint: POSSIBLE STROKE Time Seen by Provider: 03/12/18 10:43 - Related Data Allergies/Adverse Reactions: codeine Allergy (Verified 08/23/16 09:24) Sulfa (Sulfonamide Antibiotics) Allergy (Verified 08/23/16 09:24) Past Medical History - General Information source: Relative, [facility] Records - Social History Smoking Status: Former Smoker Cigarette use (# per day): No Frequency of alcohol use: None Drug Abuse: None Lives with: Family Family History: Reviewed & Not Pertinent - Past Medical History Cardiac Medical History: Reports: Hx Congestive Heart Failure - LVAD, Hx Hypercholesterolemia, Hx Hypertension Neurological Medical History: Reports: Hx Cerebrovascular Accident Malignancy Medical History: Reports Hx Renal (Kidney) Cancer - Status post nephrectomy GI Medical History: Reports: Hx Gastroesophageal Reflux Disease Musculoskeletal Medical History: Reports Hx Arthritis, Reports Hx Gout Past Surgical History: Reports: Hx Vascular Surgery - LVAD, Other - Nephrectomy , unsure if Right or Left <TIM TALAVERA - Last Filed: 03/12/18 12:15> Review of Systems - Review of Systems Constitutional: No symptoms reported EENT: No symptoms reported Cardiovascular: See HPI, Syncope Respiratory: No symptoms reported Gastrointestinal: No symptoms reported Genitourinary: No symptoms reported Male Genitourinary: No symptoms reported Musculoskeletal: No symptoms reported Skin: No symptoms reported Hematologic/Lymphatic: No symptoms reported Neurological/Psychological: See HPI, Speech impairment - Aphasia -: Yes All other systems reviewed and negative <JIGAR TALAVERAON - Last Filed: 03/12/18 12:15> Physical Exam - Notes Notes: Physical Exam: General: Alert. HEENT: Normocephalic. Superficial minor abrasion over left forehead. PERRL. Extraocular movements intact. Oropharynx clear. Neck: Supple. Non-tender. Respiratory: No respiratory distress. Clear and equal breath sounds bilaterally. Cardiovascular: Regular rate and rhythm. Abdominal: Normal Inspection. Non-tender. No distension. Normal Bowel Sounds. Back: Non-tender. No deformity or step off. Extremities: Moves all four extremities. Upper extremities: See skin exam. Lower extremities: See skin exam. Osteoarthritic changes to bilateral knees. Neurological: Alert to person and place, disoriented to time. Expressive aphasia. Indicates headache, points to left temporal and occipital area. Psychological: Unable to assess. Skin: Large bandage over left dorsal forearm covering skin tear that spans from the elbow to the wrist. Bruises over the knees and thighs bilaterally. 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 When they arrived , I went back to reevaluate the patient and found him to be unchanged from his initial presentation. His vital signs were unchanged. He was stable for transport. - Laboratory Result Diagrams: 03/12/18 11:14 03/12/18 11:14 - Diagnostic Test Radiology reviewed: Reports reviewed - There is a large parenchymal hemorrhage in the left insular region measuring 4.5 x 6 cm with associated cytotoxic edema and 3 mm of left to right midline shift. There are also bilateral subarachnoid hemorrhages. No intraventricular hemorrhage. CT scan of the cervical spine is unremarkable. - EKG Interpretation by Me Rate: Normal - 60 Rhythm: Other - Paced rhythm [place]/QRS: Left axis deviation, IVCD Voltage: Consistant with LVH <MARÍA HOUSTON - Last Filed: 03/12/18 15:43> Critical Care Note - Critical Care Note Total time excluding time spent on procedures (mins): 45 <MARÍA HOUSTON - Last Filed: 03/12/18 15:43> ED [employer]/Exc Criteria ED NIH Stroke Scale Discharge <TIM TALAVERA - Last Filed: 03/12/18 12:15> - Discharge Scribe Attestation: 03/12/18 11:58 I personally performed the services described in the documentation, reviewed and edited the documentation which was dictated to the scribe in my presence, and it accurately records my words and actions. <MARÍA HOUSTON - Last Filed: 03/12/18 15:43> - Discharge Clinical Impression: Intraparenchymal hemorrhage of brain, Subarachnoid hemorrhage, Anticoagulated on Coumadin Condition: Fair Disposition: [place] Referrals: DEVIKA ROSE MD [NO LOCAL MD] - Follow up as needed Scribe Documentation - Scribe Written by Benitae:: Trudi Burgess, 03/12/2018 1111 acting as scribe for :: Jerel <TIM TALAVERA - Last Filed: 03/12/18 12:15>
--- NOTE | 2018-03-12 11:03 | RADIOLOGY REPORT (SQ) ---
EXAM DESCRIPTION: CT HEAD WITHOUT COMPLETED DATE/TIME: 03/12/2018 10:47 am REASON FOR STUDY: stroke s/s, fall COMPARISON: None. TECHNIQUE: Axial images acquired through the brain without intravenous contrast. Images reviewed wi th bone, brain and subdural windows. Additional sagittal and coronal reconstructions were generated. Images stored on PACS. All CT scanners at this facility use dose modulation, iterative reconstruction, and/or weight based d osing when appropriate to reduce radiation dose to as low as reasonably achievable (ALARA). [facility]: Dose Right [facility]: CareDose [facility]: Dose Right [facility]: Teradose 4D [facility]: [employer] RADIATION DOSE: CT Rad equipment meets quality standard of care and radiation dose reduction techniq ues were employed. CTDIvol: 53.2 mGy. DLP: 1044 mGy-cm. mGy. LIMITATIONS: None. FINDINGS: There is a large parenchymal hemorrhage centered in the left insular region measuring abou t 4.5 x 6 cm. There is associated cytotoxic edema and about 3 mm of [id number] midline shift. Bi lateral subarachnoid hemorrhage. No intraventricular hemorrhage. IMPRESSION: Hemorrhagic infarct left MCA territory. Bilateral subarachnoid hemorrhage. EVIDENCE OF ACUTE STROKE: YES. LEFT MCA. COMMENT: Pertinent findings on the imaging study reported as a CRITICAL RESULT to Dr Jerel MAYO at10: 57 on 03/12/2018. Category of Critical Result: Intracranial hemorrhage. Quality ID # [id number]: Final reports with documentation of one or more dose reduction techniques (e.g., Au tomated exposure control, adjustment of the mA and/or kV according to patient size, use of iterative reconstruction technique) TECHNICAL DOCUMENTATION: JOB ID: [id number] [employer] All Rights Reserved Reading location - IP/workstation name: [email or web address]
--- NOTE | 2018-03-12 11:05 | RADIOLOGY REPORT (SQ) ---
EXAM DESCRIPTION: CT CERVICAL SPINE WITHOUT COMPLETED DATE/TIME: 03/12/2018 10:47 am REASON FOR STUDY: stroke s/s, fall COMPARISON: None. TECHNIQUE: Axial images acquired through the cervical spine without intravenous contrast. Images re viewed with lung, soft tissue and bone windows. Reconstructed coronal and sagittal MPR images review ed. Images stored on PACS. All CT scanners at this facility use dose modulation, iterative reconstruction, and/or weight based d osing when appropriate to reduce radiation dose to as low as reasonably achievable (ALARA). [facility]: Dose Right [facility]: CareDose [facility]: Dose Right [facility]: Teradose 4D [facility]: [employer] RADIATION DOSE: CT Rad equipment meets quality standard of care and radiation dose reduction techniq ues were employed. CTDIvol: 22.0 mGy. DLP: 570 mGy-cm. mGy. LIMITATIONS: None. FINDINGS: ALIGNMENT: Anatomic. MINERALIZATION: Normal. VERTEBRAL BODIES: No fractures or dislocation. DISCS: Multilevel disc space narrowing with osteophytes. FACETS, LATERAL MASSES, POSTERIOR ELEMENTS: Facet arthropathy. No fractures. No dislocation. No ac [place] findings. HARDWARE: None in the spine. VISUALIZED RIBS: No fractures. LUNG APICES AND SOFT TISSUES: No significant or acute findings. OTHER: No other significant finding. IMPRESSION: CHRONIC DEGENERATIVE CHANGES. NO ACUTE FINDINGS. TECHNICAL DOCUMENTATION: JOB ID: [id number] Quality ID # [id number]: Final reports with documentation of one or more dose reduction techniques (e.g., Au tomated exposure control, adjustment of the mA and/or kV according to patient size, use of iterative reconstruction technique) 2010 [employer]- All Rights Reserved Reading location - IP/workstation name: [email or web address]
[2018-03-12 11:23] LABS: APPEARANCE,URINE CLEAR; BILIRUBIN,URINE NEGATIVE (NEGATIVE); COLOR,URINE YELLOW; GLUCOSE, URINE NEGATIVE (NEGATIVE); KETONES,URINE NEGATIVE (NEGATIVE); LEUKOCYTE ESTERASE,URINE NEGATIVE (NEGATIVE); NITRITE,URINE NEGATIVE (NEGATIVE); PROTEIN,URINE 30 mg/dL (NEGATIVE); URINE SPECIFIC GRAVITY 1.013; UROBILINOGEN,URINE NEGATIVE mg/dL (<2.0)
[2018-03-12 11:47] LABS: INTERNATIONAL RATION (INR) 2.68; PROTHROMBIN TIME 29.8 SEC (11.4-15.4)
[2018-03-12 11:48] LABS: ABSOLUTE LYMPHOCYTES (AUTO) 0.7 10^3/uL (0.5-4.7); ABSOLUTE MONOCYTES (AUTO) 1.1 10^3/uL (0.1-1.4); ABSOLUTE NEUT (AUTO) 9.2 10^3/uL (1.7-8.2); BASOPHILS % (AUTO) 0.4 % (0-2); EOSINOPHILS % (AUTO) 0.2 % (0-6); HEMATOCRIT 41.6 % (37.9-51.0); HEMOGLOBIN 14.3 g/dL (13.5-17.0); LYMPHOCYTES % (AUTO) 6.3 % (13-45); MEAN CORPUSCULAR HEMOGLOBIN 30.5 pg (27.0-33.4); MEAN CORPUSCULAR HGB CONC 34.4 g/dL (32.0-36.0); MEAN CORPUSCULAR VOLUME 89 fl (80-97); MONOCYTES % (AUTO) 9.8 % (3-13); PLATELET COUNT 108 10^3/uL (150-450); RED BLOOD COUNT 4.68 10^6/uL (4.35-5.55); RED CELL DISTRIBUTION WIDTH 13.7 % (11.5-14.0); SEGMENTED NEUTROPHILS % (AUTO) 83.3 % (42-78); TOTAL CELLS COUNTED % (AUTO) 100 %
[2018-03-12 11:53] LABS: ALANINE AMINOTRANSFERASE 15 U/L (21-72); ALKALINE PHOSPHATASE 72 U/L (38-126); ANION GAP 13 (5-19); ASPARTATE AMINO TRANSFERASE 27 U/L (17-59); BILIRUBIN,DIRECT 0.7 mg/dL (0.0-0.4); BILIRUBIN,TOTAL 1.7 mg/dL (0.2-1.3); BLOOD UREA NITROGEN 53 mg/dL (7-20); CALCIUM 9.3 mg/dL (8.4-10.2); CARBON DIOXIDE 31 mmol/L (22-30); CHLORIDE 97 mmol/L (98-107); DIGOXIN 0.69 ng/mL (0.8-2.0); GLUCOSE 126 mg/dL (75-110); SODIUM 140.8 mmol/L (137-145); TOTAL PROTEIN 7.2 g/dL (6.3-8.2)
--- NOTE | 2018-03-12 12:40 | EKG REPORT ---
SEVERITY:- DEFECTIVE ECG - TECHNICALLY POOR TRACING - PLEASE REPEAT ECG! ACCELERATED JUNCTIONAL ESCAPE RHYTHM NONSPECIFIC IVCD WITH LAD LEFT VENTRICULAR HYPERTROPHY : Confirmed by: Char Carter MD 12-Mar-2018 12:39:56
[2018-03-12 14:26] VITALS: BP 95/58
== END 2018-03-12 14:47 | disposition short-term general hospital (02) ==
LOC: ER 10:35
DX: S06.6X9A Traumatic subarachnoid hemorrhage with loss of consciousness of unspecified duration, initial encounter (principal); S06.360A Traumatic hemorrhage of cerebrum, unspecified, without loss of consciousness, initial encounter; S41.112A Laceration without foreign body of left upper arm, initial encounter; S00.81XA Abrasion of other part of head, initial encounter; R55 Syncope and collapse; W19.XXXA Unspecified fall, initial encounter; Z79.01 Long term (current) use of anticoagulants; Z87.891 Personal history of nicotine dependence; I50.9 Heart failure, unspecified; R47.01 Aphasia
CPT/HCPCS: 36415; 70450; 72125; 80053; 80162; 81001; 82962; 85025; 85610; 93005; 93010; 99291